=== PATIENT | female | born 1935 | race Caucasian/White ===

== ENCOUNTER 2023-11-29 06:24 | Inpatient (IN) | payer MEDICARE, OTHER, BC, SELFPAY ==
--- NOTE | 2023-11-29 06:37 | PC.NURSE ---
[place] was notified for transfer-- Patient on 4L/NC for saturation of 84% per [facility], acute right pleural effusion, and acute pericardial effusion. Patient not on oxygen at her baseline. Placed patient Acute Step down 219, Hospitalist
--- NOTE | 2023-11-29 06:50 | EXP.HP ---
History of Present Illness *Admission Date: 11/29/23 *Reason for visit:: SOB *History of present illness: This is an 88-year-old female [facility] resident with PMHx of atrial fibrillation s/p cardioversion x3, arthritis, systolic heart failure, unknown EF, respiratory failure not on oxygen, sent to ED by nursing facility staff for evaluation of hypoxia. Patient reportedly had an episode of shortness of breath and cough, saturation dropped in the mid 70s and they had placed on oxygen. Patient reports started has not need to be on oxygen for approximately 1 year that she did have a recent hip replacement surgery within the past year and that has helped. On arrival patient was found to have a right pleural effusion with cardiac pericardial effusion. Transfer was requested for pulmonology and cardiology evaluation. Patient denies any chest pain or palpitations no headache currently on 4 L nasal cannula. On arrival no respiratory distress seen. Admitted for further workup and management. [facility] Disclaimer: The information contained in this section may have been updated after the patient was seen, as this information can be updated by other users. 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 Hypothyroidism, unspecified Heart failure, unspecified Constipation, unspecified Anxiety disorder, unspecified Acute posthemorrhagic anemia Social History (Updated 11/29/23 @ 07:01 by Brenda Hernandez RN) Smoking Status: Never smoker alcohol intake: never current occupational status: retired Travel in the last 8 weeks: None housing: long term Review of Systems Review of Systems Review of systems:: pertinent systems reviewed and negative unless documented below Meds Home Medications and Allergies Home Medications ?Medication ?Instructions ?Recorded ?Confirmed ?Type acetaminophen 500 mg tablet 500 mg PO TIDP PRN Mild Pain 11/29/23 11/29/23 History (Scale Score 1-4) apixaban 2.5 mg tablet 2.5 mg PO BID 11/29/23 11/29/23 History bisacodyl 5 mg tablet 5 mg PO DAILYP PRN Constipation 11/29/23 11/29/23 History furosemide 20 mg tablet 20 mg PO MOWEFR 11/29/23 11/29/23 History gabapentin 100 mg capsule 200 mg PO HS 11/29/23 11/29/23 History levothyroxine 25 mcg tablet 25 mcg PO DAILYDM 11/29/23 11/29/23 History lorazepam 1 mg tablet 1 mg PO DAILYP PRN Anxiety 11/29/23 11/29/23 History memantine 5 mg tablet 5 mg PO HS 11/29/23 11/29/23 History mirtazapine 7.5 mg tablet 7.5 mg PO HS 11/29/23 11/29/23 History polyethylene glycol 3350 17 17 g PO DAILY 11/29/23 11/29/23 History gram/dose oral powder (Miralax) sennosides 8.6 mg-docusate sodium 1 tab PO BID 11/29/23 11/29/23 History 50 mg tablet (Senna-S) simethicone 80 mg chewable tablet 80 mg PO ACHS PRN GAS 11/29/23 11/29/23 History spironolactone 25 mg tablet 25 mg PO SUTUTHSA 11/29/23 11/29/23 History tramadol 50 mg tablet 50 mg PO Q6HP PRN Moderate TO 11/29/23 11/29/23 History SEVERE Pain (PAIN 4-10) trazodone 50 mg tablet 50 mg PO HSP PRN Sleep 11/29/23 11/29/23 History vit C 250 mg-vit E 90 mg-zinc 40 1 tab PO BID 11/29/23 11/29/23 History mg-copper 1 [id number] capsule (PreserVision AREDS-2) New Prescriptions to Start Prescriptions: Allergies Allergy/AdvReac Type Severity Reaction Status Date / Time codeine Allergy Severe Anaphylaxis Verified 11/29/23 06:37 Penicillins Allergy Unknown Unknown Verified 11/29/23 06:37 allergy reaction Sulfa (Sulfonamide Allergy Unknown Unknown Verified 11/29/23 06:37 Antibiotics) allergy reaction Exam Constitutional Constitutional: mild distress, thin and cooperative *Routine HEENT Exam Head: Present normocephalic Eye: Present EOMI and PERRL ENT: Present mucous membranes moist *Routine Neck Exam Neck: Present supple; Absent lymphadenopathy *Routine Respiratory Exam Respiratory: Present CTA bilaterally, diminished air movement and symmetric chest movement *Routine Cardiovascular Exam Cardiovascular: Present Normal S1, Normal S2 and irregularly irregular *Routine Abdominal Exam Abdominal: Present soft and normoactive bowel sounds; Absent tenderness *Routine Rectal Exam Rectal:: deferred *Routine Genitalia Exam Genitalia:: deferred *Routine Extremities Exam Extremities: Absent cyanosis, clubbing or edema *Routine Skin Exam Skin: Present warm; Absent rash *Routine Neurological Exam Neurological: Present alert and oriented X3 H&P: Result Imaging and Cardiology EKG: Status: image reviewed by me, Preliminary report and final report Chest x-ray: Status: image reviewed by me, Preliminary report and final report CT scan - chest: Status: image reviewed by me, Preliminary report and final report Assessment and Plan *Assessment and plan (1) Acute respiratory failure with hypoxia: Status: Acute Category: Medical Code(s): J96.01 - Acute respiratory failure with hypoxia (2) Pericardial effusion: Status: Acute Category: Medical Code(s): I31.39 - Other pericardial effusion (noninflammatory) (3) Pleural effusion, right: Status: Acute Category: Medical Code(s): J90 - Pleural effusion, not elsewhere classified (4) UTI (urinary tract infection): Status: Acute Qualifiers: Hematuria presence: without hematuria Urinary tract infection type: site unspecified Qualified Code(s): N39.0 - Urinary tract infection, site not specified Category: Medical Code(s): N39.0 - Urinary tract infection, site not specified (5) Heart failure, unspecified: Status: Acute Qualifiers: Heart failure chronicity: unspecified Category: Medical Code(s): I50.9 - Heart failure, unspecified (6) Unspecified atrial fibrillation: Status: Acute Qualifiers: Atrial fibrillation type: unspecified Qualified Code(s): I48.91 - Unspecified atrial fibrillation Category: Medical Code(s): I48.91 - Unspecified atrial fibrillation (7) 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 resident with PMHx of atrial fibrillation s/p cardioversion x3, arthritis, systolic heart failure, unknown EF, respiratory failure not on oxygen, sent to ED by nursing facility staff for evaluation of hypoxia. On arrival to another facility initial workup was included CT and chest x-ray concerning for right pleural effusion, along with pericardial effusion. EKG was on atrial fibrillation with T inversions in V2 through V6 no ST changes. Troponin was negative BNP slightly elevated. UA concerning for UTI. Transfer was requested for to our facility for pulmonology and cardiology evaluation. Discussed with the referring physician. I agree for admission and transfer. Plan as follow: -Acute respiratory failure with hypoxia: For cardiac and pleural effusion. Right side Rule out CHF observation, versus malignancy: Urinary tract infection: Admit patient for continued cardiac telemetry. Dispo [facility] Pulmonology and cardiology consult Obtain baseline labs. Including troponin Echocardiogram ordered Monitor for hypoxia. Currently on 3 L nasal cannula and weaning off. Checks x-ray Started on Levaquin 750 mg IV Daily lab Chronic conditions: Hypertension heart failure, atrial fibrillation: Resume Eliquis. Patient on dual diuresis spironolactone and furosemide. 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 Resume Synthroid for hypothyroidism On Eliquis. Protonix for GI bleed prophylaxis Full code
--- NOTE | 2023-11-29 06:58 | XR_ITS ---
PROCEDURE INFORMATION: Exam: XR Chest Exam date and time: 11/29/2023 7:05 AM Age: 88 years old Clinical indication: Condition or disease; Other: Pleural effusion; Additional info: Right pleural effusion TECHNIQUE: Imaging protocol: Radiologic exam of the chest. Views: 1 view. COMPARISON: CT CHEST WO CONTRAST 11/29/2023 2:41 AM FINDINGS: Lungs: Opacity in the right base may represent atelectasis or pneumonia.. Pleural spaces: Mild to moderate right pleural effusion Heart/Mediastinum: Cardiomegaly Bones/joints: Healed proximal left humeral neck fracture IMPRESSION: Opacity in the right base may represent atelectasis or pneumonia.. Mild to moderate right pleural effusion
[2023-11-29 07:19] VITALS: BMI 18.3
[2023-11-29 07:44] LABS: Basophils % 0.4 % (0.1-2.0); Eosinophils % 0.4 % (0.1-12.0); Hematocrit 36.9 % (37.0-47.0); Hemoglobin 11.1 g/dL (12.2-16.2); Lymphocytes # 0.9 K/mm3 (0.7-4.5); Lymphocytes % 13.8 % (10-50); Mean Corpuscular Hemoglobin 28.1 pg (27.0-31.2); Mean Corpuscular Volume 93.5 fl (81-99); Mean Platelet Volume 9.4 fl (7.4-10.4); Monocytes # 0.4 K/mm3 (0.1-1.0); Monocytes % 6.6 % (1.7-9.3); Neutrophils % 78.9 % (37.0-80.0); Platelet Count 149 K/mm3 (142-424); Red Blood Count 3.95 M/mm3 (4.20-5.40); Red Cell Distribution Width 16.1 % (11.5-17.5); White Blood Count 6.3 K/mm3 (4.8-10.8)
[2023-11-29 07:52] LABS: Albumin Level 3.5 g/dl (3.5-5.0); Chloride 106 mmol/L (98-107); Sodium 139 mmol/L (136-145)
[2023-11-29 07:53] LABS: Potassium 4.1 mmoL/L (3.5-5.1)
[2023-11-29 07:55] LABS: Alanine Aminotransferase 12 U/L (12-78); Albumin/Globulin Ratio 1.1 (1.1-1.8); Anion Gap 9.1 mEq/L (5-15); Aspartate Amino Transferase 20 U/L (14-36); Blood Urea Nitrogen 28 mg/dl (7-17); Carbon Dioxide 28 mmol/L (22.0-30.0); Creatinine Clearance Estimated 33 mL/min (50-200); Estimated Glomerular Filt Rate 68 ml/min (>60); GFR (African American) 82 ML/MIN (>60); Globulin 3.1 g/dL (1.3-3.2); Total Protein,Serum 6.6 g/dl (6.3-8.2)
[2023-11-29 07:56] LABS: Alkaline Phosphatase 65 U/L (38-126); Bilirubin,Total 1.5 mg/dl (0.2-1.3); Glucose 94 mg/dl (74-100); INR 1.16 (0.9-1.1); Prothrombin Time 12.8 seconds (10.1-12.5)
[2023-11-29 08:00] VITALS: BP 103/71; PULSE 90; RESP 20; O2SAT 97
[2023-11-29 08:08] LABS: Troponin I 0.04 ng/ml (0.00-0.034)
[2023-11-29] MEDS: PANTOPRAZOLE 40MG TABLET 40 MG PO (08:16)
[2023-11-29 10:00] VITALS: BP 118/65; PULSE 92; RESP 20; O2SAT 93
[2023-11-29 11:20] LABS: Troponin I 0.03 ng/ml (0.00-0.034)
[2023-11-29 12:00] VITALS: BP 136/60; PULSE 110; RESP 22; TEMP 36.5; O2SAT 96
[2023-11-29] MEDS: LEVOFLOXACIN/D5W 750 MG/150 ML 750 MG/150 ML PIGGYBACK 100 MG IV (12:26)
[2023-11-29 13:53] LABS: Troponin I 0.03 ng/ml (0.00-0.034)
--- NOTE | 2023-11-29 15:30 | PC.NURSE ---
Addendum entered by Ami Courtney RN 11/29/23 16:56: Patient alert and oriented times 4 at beginning of shift but confused to situation after lunch. Patient unable to remember why she was at the hospital. Patient able to be reoriented easily. Patient's son stated this am that patient is forgetful and confusion waxes and wanes. Original Note: Patient anxious during shift after lunch, pt easily reoriented and calmed down. VS stable and patient on 1lNC. Patient weaned to room air but 87% on room air at rest and 1LNC reapplied. Lung sounds clear. IV antibiotics given. Afib on monitor. No pain reported by patient.
[2023-11-29 16:00] VITALS: BP 140/75; PULSE 100; PULSE 86; RESP 19; TEMP 36.6; O2SAT 96
[2023-11-29 16:37] LABS: Troponin I 0.02 ng/ml (0.00-0.034)
[2023-11-29 16:57] LABS: Microscopic, Urine URINE MICROSCOPIC (MICROSCOPIC)
[2023-11-29 16:58] LABS: Appearance,Urine CLEAR (Clear); Bilirubin,Urine Negative (Negative); Blood, Urine Negative (Negative); Color,Urine YELLOW (Yellow); Glucose,Urine (UA) Negative (Negative); Ketones,Urine Negative (Negative); Leukocyte Esterase,Urine 1+ (Negative); Nitrate,Urine Negative (Negative); Protein,Urine 1+ (Negative); Specific Gravity, Urine >= 1.030 (1.005-1.030); Urobilinogen,Urine 0.2 EU/dl (0.2)
[2023-11-29 17:06] LABS: Bacteria,Urine 1+ /lpf; WBC,Urine 20-50 #/hpf (0-3)
[2023-11-29 19:18] LABS: Troponin I 0.02 ng/ml (0.00-0.034)
[2023-11-29 20:00] VITALS: BP 107/65; PULSE 89; RESP 16; TEMP 36.8; O2SAT 95
[2023-11-29] MEDS: SENNOSIDES 8.6MG/DOCUSATE 50MG TABLET 1 TAB PO (21:31)
[2023-11-29] MEDS: SPIRONOLACTONE 25MG TABLET 25 MG PO (21:31)
[2023-11-29] MEDS: GABAPENTIN 100MG CAPSULE 200 MG PO (21:32)
[2023-11-29] MEDS: PATIENT'S OWN HOME MEDICATION (Mirtazapine 7.5 mg tablet) 7.5 EACH PO (21:42)
[2023-11-29] MEDS: PATIENT'S OWN HOME MEDICATION (Memantine 5 mg tablet) 5 EACH PO (21:42)
[2023-11-29 22:27] LABS: Troponin I 0.02 ng/ml (0.00-0.034)
[2023-11-30] VITALS (7 sets, daily range): BP systolic 100–138; BP diastolic 55–87; PULSE 68–120; RESP 16–22; TEMP 36.6–37.5; O2SAT 2–95; BMI 18.8
--- NOTE | 2023-11-30 02:30 | ECG_ITS ---
APPROVED REPORT Exam: Resting ECG HR:107 bpm ECG Measurements Heart Rate 107 AXES QRSd 148 QRS 41 QT 392 T 90 QTc 455 Conclusion ATRIAL FIBRILLATION WITH RAPID VENTRICULAR RESPONSE WITH ABERRANT CONDUCTION OR VENTRICULAR PREMATURE COMPLEXES INTRAVENTRICULAR CONDUCTION DELAY [130+ ms QRS DURATION] ABNORMAL ECG UNCONFIRMED REPORT Electronically signed by : Juarez Garcia MD 11/30/2023 08:07:09
[2023-11-30] MEDS: LORazepam 1MG TABLET 1 MG PO (03:02)
--- NOTE | 2023-11-30 05:29 | PC.NURSE ---
Alert and oriented, intermittent confusion, easily reoriented. Pt states she just wants to go home. Pt increased to 2L NC while sleeping, O2 sat dropped to 84% on 1L, now O2 sat >90%. Uses bedside commode with one assist, has had multiple trips to the [facility] this shift. Pt is very anxious, continuously asks questions about why we do what we do, PRN medication given, pt did rest after. Pt HR began to climb to 150s, decreased and sustained 120s, EKG complete, given to Frank TREJO, stated to try PRN medications. Pt HR remains in 110s at this time. Afib on the monitor. Occassionaly HR will go to 130s, but does not sustain and drops back to 110s quickly. When patient gets up HR goes up, laying down HR decreases. Orthostatics taken. Bed alarm on, Call light in reach.
--- NOTE | 2023-11-30 06:48 | CA_ITS ---
APPROVED REPORT EXAM: Comprehensive 2D, Doppler, and color-flow Echocardiogram Materials Intern: Cuca Emerson CRT Ht: 5 ft 7 in Wt: 119lbs BSA: 1.62 BP: 124/66 mmHg Indications: Afib, cardioversion x 3, chf, pleural effusion, pericardial effusion Pectus excavatum, heart sits low in chest TDE 2D Dimensions LA Volume 59.90 mL LA Volume Index 36.10 mL/m2 (M/F) 16-34 M-Mode Dimensions RVDd 4.34 cm (0.9-2.6) LA Diam 4.57 cm (1.9-4.0) LVDd 5.38 cm (3.5-5.7) LVDs 3.85 cm (3.5-5.7) IVSd 1.18 cm (0.6-1.1) PWd 0.54 cm (0.6-1.1) EF (Teich) 54.40% FS 28.40% EDV (Teich) 140.10 mL ESV (Teich) 63.90 mL LV Diastology E Decel Time 150 (160-240 msec) E/A Ratio 2.63 MED A' 7.10 cm/s LAT A' 3.20 cm/s Aortic Valve AI PHT 343.00 ms AO Peak GR. 3.60 mmHg Mitral Valve MV E Max Isaac. 58.0 (40-130 cm/s) MV A Velocity 22.0 (40-130 cm/s) E/A Ratio 2.63 MV PHT 44.0 ms Pulmonary Valve PV Peak Velocity 207.0 (50-150 cm/s) Tricuspid Valve TR P. Velocity 239.00 cm/s RAP Estimate 10.00 mmHg RVSP 32.90 mmHg Left Ventricle The left ventricle is normal size. Left ventricular systolic function is moderate to severely decreased. There is increased LV wall thickness. The septum is asynchronous. Moderte to severe global hypokinesis is present. Diastolic function is indeterminate. LVEF is 30%. Right Ventricle Right ventricle is moderately dilated. Right ventricle is moderately hypokinetic. Atria Left atrium is severely dilated. Right atrium is moderately dilated. The interatrial septum is not well visualized. Aortic Valve The aortic valve is mildly thickened. There is no aortic valvular stenosis. Trace aortic regurgitation. Mitral Valve The mitral valve is normal in structure. No evidence of mitral valve stenosis. Mild mitral regurgitation. Tricuspid Valve The tricuspid valve leaflets are thin and pliable. Moderate tricuspid regurgitation. RVSP is 25-30 mmHg. Pulmonic Valve The pulmonary valve is normal in structure. Mild to moderate pulmonic regurgitation. Great Vessels The aortic root is normal in size. The ascending aorta is not well visualized. IVC is dilated, but collapsible > 50% with respirophasic variation. RA pressure is estimated at 8 mmHg. Pericardium A moderate-sized circumferential pericardial effusion is preent. Largest pocket measures 1.2 cm in diastole and is located posteriorly. No clear echo indications of tamponade or chamaber collapse. Other Information Study Quality: Technically Difficult Conclusion Technically difficult study due to poor accoustic windows and history of pectus excavatum. Moderate reduction in LV systolic function (LVEF 30%). Moderate RV dilation with moderate reduction in RV function. Biatrial dilation. Moderate TR. Mild to moderate PI. Mild PI. A moderate-sized circumferential pericardial effusion is preent. Largest pocket measures 1.2 cm in diastole and is located posteriorly. No clear echo indications of tamponade or chamaber collapse. Electronically signed by : Nusrat Aiken MD 11/30/2023 09:28:08
[2023-11-30 07:07] LABS: Basophils % 0.3 % (0.1-2.0); Eosinophils # 0.1 K/mm3 (0.0-0.4); Eosinophils % 1.4 % (0.1-12.0); Hematocrit 37.1 % (37.0-47.0); Lymphocytes % 17.5 % (10-50); Mean Corpuscular HGB Conc 29.6 g/dL (31.8-35.4); Mean Corpuscular Hemoglobin 27.8 pg (27.0-31.2); Mean Corpuscular Volume 93.8 fl (81-99); Mean Platelet Volume 9.6 fl (7.4-10.4); Monocytes # 0.5 K/mm3 (0.1-1.0); Monocytes % 8.2 % (1.7-9.3); Neutrophils # 4.3 K/mm3 (1.8-7.8); Neutrophils % 72.6 % (37.0-80.0); Platelet Count 153 K/mm3 (142-424); Red Blood Count 3.95 M/mm3 (4.20-5.40); White Blood Count 5.9 K/mm3 (4.8-10.8)
[2023-11-30 07:17] LABS: Albumin Level 3.4 g/dl (3.5-5.0); Chloride 108 mmol/L (98-107); Sodium 139 mmol/L (136-145)
[2023-11-30 07:18] LABS: Potassium 4.1 mmoL/L (3.5-5.1)
[2023-11-30 07:20] LABS: Alanine Aminotransferase 8 U/L (12-78); Albumin/Globulin Ratio 1.1 (1.1-1.8); Alkaline Phosphatase 67 U/L (38-126); Anion Gap 5.1 mEq/L (5-15); Aspartate Amino Transferase 17 U/L (14-36); Bilirubin,Total 1.2 mg/dl (0.2-1.3); Blood Urea Nitrogen 24 mg/dl (7-17); Carbon Dioxide 30 mmol/L (22.0-30.0); Creatinine Clearance Estimated 33 mL/min (50-200); Estimated Glomerular Filt Rate 79 ml/min (>60); GFR (African American) 95 ML/MIN (>60); Globulin 3.2 g/dL (1.3-3.2); INR 1.12 (0.9-1.1); Prothrombin Time 12.4 seconds (10.1-12.5); Total Protein,Serum 6.6 g/dl (6.3-8.2)
[2023-11-30 07:21] LABS: Glucose 90 mg/dl (74-100)
--- NOTE | 2023-11-30 08:02 | SW/DCPLANNER ---
Addendum entered by Francine Belle 11/30/23 08:39: Updated patient information has been faxed to [facility]. Original Note: Patient currently resides at [facility] level of care. I will continue to follow up w/ Bonita from [facility] until patient is medically stable for discharge. Discharge date is unknown at this time.
[2023-11-30] MEDS: LEVOTHYROXINE 25MCG (0.025MG) TAB 25 MCG PO (09:53)
[2023-11-30] MEDS: SENNOSIDES 8.6MG/DOCUSATE 50MG TABLET 1 TAB PO ×2 (09:53→20:25)
[2023-11-30] MEDS: FUROSEMIDE 20MG TABLET 20 MG PO (09:53)
[2023-11-30] MEDS: APIXABAN 5MG TABLET 2.5 MG PO ×2 (09:53→20:22)
[2023-11-30] MEDS: PANTOPRAZOLE 40MG TABLET 40 MG PO (09:53)
--- NOTE | 2023-11-30 10:22 | CT_ITS ---
FINAL REPORT TECHNIQUE: Axial images were obtained from the lung apex to the mid abdomen by computed tomography. Coronal reformatted images were obtained. This study was performed with techniques to keep radiation doses as low as reasonably achievable, (ALARA). Individualized dose reduction techniques using automated exposure control or adjustment of mA and/or kV according to the patient''s size were employed. CLINICAL HISTORY: Shortness of breath COMPARISON: 11/29/2023 FINDINGS: There are several small left thyroid nodes which are stable. There is stable pectus excavatum deformity. There are several small mediastinal nodes. No axillary mass or adenopathy is seen. Cardiomegaly is noted. There is a stable moderate pericardial effusion. Mild emphysema is noted. There are moderate right and small left pleural effusions which are visually stable. The right pleural effusion measures up to 39 mm and left pleural effusion measures up to 13 mm. There are right middle lobe and bilateral lower lobe opacities, much of which are felt to represent atelectasis. Superimposed pneumonia is not excluded but findings are stable. The chest wall is intact. Limited images of the upper abdomen demonstrate several small nonobstructing bilateral renal stones measuring up to 4 mm. There is a low-attenuation left renal mass which cannot be accurately characterized on this noncontrast study measuring 21 mm and may represent a cyst. There is a chronic L1 superior endplate compression fracture. IMPRESSION: Stable right middle lobe and bilateral lower lobe opacities felt to represent atelectasis but superimposed pneumonia not excluded. Bilateral pleural effusions as described, visually stable. Cardiomegaly and stable moderate pericardial effusion. Bilateral nonobstructing renal stones up to 4 mm. Probable left renal cyst. Reviewed, Interpreted and Dictated by Domo Conteh III, MD Transcribed by Chelsey Cunha Authenticated and [facility]
--- NOTE | 2023-11-30 14:22 | EXP.CARD.CON ---
History of Present Illness History of Present Illness Consult date: 11/30/23 Requesting physician: Rosetta Cole Consult reason: shortness of breath Chief complaint: SOA Additional Medical History:: 1. Chronic atrial fibrillation A. Eliquis B. History of cardioversion x 3 2. Dementia A. Son is power of fish bailer 3. History of respiratory failure A. Pleural effusions, right greater than left, 11/2023 4. Newly diagnosed HFrEF, 11/2023 A. Echocardiogram, EF 30% 5. Chronic pericardial effusion, 11/2023 with echo in 2022 showing pericardial effusion as well History of present illness: This is an 88-year-old female [facility] resident with PMHx of atrial fibrillation s/p cardioversion x3, arthritis, systolic heart failure, unknown EF, respiratory failure not on oxygen, sent to ED by nursing facility staff for evaluation of hypoxia. Patient reportedly had an episode of shortness of breath and cough, saturation dropped in the mid 70s and they had placed on oxygen. Patient reports started has not need to be on oxygen for approximately 1 year that she did have a recent hip replacement surgery within the past year and that has helped. On arrival patient was found to have a right pleural effusion with cardiac pericardial effusion. Transfer was requested for pulmonology and cardiology evaluation. Patient denies any chest pain or palpitations no headache currently on 4 L nasal cannula. On arrival no respiratory distress seen. Admitted for further workup and management. The above per Taiwo Marie APRN for the hospitalist service Cardiology consulted for evaluation of pericardial effusion. Patient has some dementia and her son is present and is the power of fish bailer and provides all of the information. Patient had previously been seen by cardiology at [facility] in [place] but since she has been a long term resident she has not been seen in the last year and a half except by televisits. He was able to pull up an echocardi[place] [facility] [place] showing an ejection fraction of 51-55%. There was evidence of concentric LVH. Echocardiogram today shows evidence of EF 30% with increased LV wall thickness and asynchronous septum. Moderate to severe global hypokinesis. Severe left atrial enlargement and moderate right atrial enlargement with mild MR and moderate TR. RVSP is 25-30 mmHg. Mild to moderate pulmonic regurgitation noted. Evidence of a moderate size circumferential pericardial effusion without evidence of tamponade or chamber collapse. PFSH PFSH Disclaimer: The information contained in this section may have been updated after the patient was seen, as this information can be updated by other users. 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 Hypothyroidism, unspecified Heart failure, unspecified Constipation, unspecified Anxiety disorder, unspecified Acute posthemorrhagic anemia Social History (Updated 11/29/23 @ 07:01 by Brenda Hernandez RN) Smoking Status: Never smoker alcohol intake: never current occupational status: retired Travel in the last 8 weeks: None housing: long term Review of Systems Review of Systems Review of systems:: pertinent systems reviewed and negative unless documented below Exam Data for Last 24 hours Vital signs and Labs for Last 24 Hours: Temp Pulse Resp BP Pulse Ox O2 Del Method O2 Flow Rate 98.4 F 72 18 119/83 95 Nasal Cannula 2 11/30/23 12:00 11/30/23 12:00 11/30/23 12:00 11/30/23 12:00 11/30/23 12:00 11/30/23 12:00 11/30/23 12:00 Laboratory Results - last 24 hr 11/29/23 09:39: Urine Color Yellow, Urine Appearance Clear, Urine pH 6.0, Ur Specific [place] >= 1.030, Urine Protein 1+, Urine Glucose (UA) Negative, Urine Ketones Negative, Urine Blood Negative, Urine Nitrate Negative, Urine Bilirubin Negative, Urine Urobilinogen 0.2, Ur Leukocyte Esterase 1+ A, Urine WBC 20-50, Ur Squamous Epith Cells 3-5, Urine Bacteria 1+ 11/29/23 16:05: Troponin I 0.02 11/29/23 18:50: Troponin I 0.02 11/29/23 21:55: Troponin I 0.02 11/30/23 06:55: WBC 5.9, RBC 3.95 L, Hgb 11.0 L, Hct 37.1, MCV 93.8, MCH 27.8, MCHC 29.6 L, RDW 16.0, Plt Count 153, MPV 9.6, Neut % (Auto) 72.6, Lymph % (Auto) 17.5, [place] % (Auto) 8.2, Eos % (Auto) 1.4, Baso % (Auto) 0.3, Neut # (Auto) 4.3, Lymph # (Auto) 1.0, [place] # (Auto) 0.5, Eos # (Auto) 0.1, Baso # (Auto) 0.0, PT 12.4, INR 1.12 H, Sodium 139, Potassium 4.1, Chloride 108 H, Carbon Dioxide 30, Anion Gap 5.1, BUN 24 H, Creatinine 0.70, Estimated Creat Clear 33, Estimated GFR 79, Est GFR ( Amer) 95, Glucose 90, Calcium 8.0 L, Magnesium 2.0, Total Bilirubin 1.2, AST 17, ALT 8 L D, Alkaline Phosphatase 67, Total Protein 6.6, Albumin 3.4 L, Globulin 3.2, Albumin/Globulin Ratio 1.1 I & O for Last 24 hours: Intake & Output 11/28/23 11/29/23 11/30/23 12/01/23 11:59 11:59 11:59 11:59 Intake Total 0 / 0 710 / 710 Output Total 0 / 0 0 / 0 Balance 0 / 0 710 / 710 Weight 119 lb 4.8 oz 121 lb 5 oz Constitutional Constitutional: mild distress *Routine Respiratory Exam Respiratory: Present diminished air movement; Absent rhonchi or wheezes *Routine Cardiovascular Exam Cardiovascular: Present RRR; Absent murmur, gallop or rubs *Routine Extremities Exam Extremities: Absent edema *Routine Neurological Exam Neurological: Present alert; Absent oriented X3 Meds Home Medications and Allergies Home Medications ?Medication ?Instructions ?Recorded ?Confirmed ?Type acetaminophen 500 mg tablet 500 mg PO TIDP PRN Mild Pain 11/29/23 11/29/23 History (Scale Score 1-4) apixaban 2.5 mg tablet 2.5 mg PO BID 11/29/23 11/29/23 History bisacodyl 5 mg tablet 5 mg PO DAILYP PRN Constipation 11/29/23 11/29/23 History furosemide 20 mg tablet 20 mg PO MOWEFR 11/29/23 11/29/23 History gabapentin 100 mg capsule 200 mg PO HS 11/29/23 11/29/23 History levothyroxine 25 mcg tablet 25 mcg PO DAILYDM 11/29/23 11/29/23 History lorazepam 1 mg tablet 1 mg PO DAILYP PRN Anxiety 11/29/23 11/29/23 History memantine 5 mg tablet 5 mg PO HS 11/29/23 11/29/23 History mirtazapine 7.5 mg tablet 7.5 mg PO HS 11/29/23 11/29/23 History polyethylene glycol 3350 17 17 g PO DAILY 11/29/23 11/29/23 History gram/dose oral powder (Miralax) sennosides 8.6 mg-docusate sodium 1 tab PO BID 11/29/23 11/29/23 History 50 mg tablet (Senna-S) simethicone 80 mg chewable tablet 80 mg PO ACHS PRN GAS 11/29/23 11/29/23 History spironolactone 25 mg tablet 25 mg PO SUTUTHSA 11/29/23 11/29/23 History tramadol 50 mg tablet 50 mg PO Q6HP PRN Moderate TO 11/29/23 11/29/23 History SEVERE Pain (PAIN 4-10) trazodone 50 mg tablet 50 mg PO HSP PRN Sleep 11/29/23 11/29/23 History vit C 250 mg-vit E 90 mg-zinc 40 1 tab PO BID 11/29/23 11/29/23 History mg-copper 1 my-hzsjak-yhcjli capsule (PreserVision AREDS-2) New Prescriptions to Start Prescriptions: Allergies Allergy/AdvReac Type Severity Reaction Status Date / Time codeine Allergy Severe Anaphylaxis Verified 11/29/23 06:37 Penicillins Allergy Unknown Unknown Verified 11/29/23 06:37 allergy reaction Sulfa (Sulfonamide Allergy Unknown Unknown Verified 11/29/23 06:37 Antibiotics) allergy reaction Assessment and Plan *Assessment and plan (1) HFrEF (heart failure with reduced ejection fraction): Status: Acute Category: Medical Code(s): I50.20 - Unspecified systolic (congestive) heart failure (2) UTI (urinary tract infection): Status: Acute Qualifiers: Urinary tract infection type: site unspecified Hematuria presence: without hematuria Qualified Code(s): N39.0 - Urinary tract infection, site not specified Category: Medical Code(s): N39.0 - Urinary tract infection, site not specified (3) 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: Status: Acute Category: Medical Code(s): F06.70 - 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 (4) Pericardial effusion: Status: Acute Category: Medical Code(s): I31.39 - Other pericardial effusion (noninflammatory) (5) Pleural effusion, right: Status: Acute Category: Medical Code(s): J90 - Pleural effusion, not elsewhere classified (6) Acute respiratory failure with hypoxia: Status: Acute Category: Medical Code(s): J96.01 - Acute respiratory failure with hypoxia (7) Unspecified atrial fibrillation: Status: Acute Qualifiers: Atrial fibrillation type: unspecified Qualified Code(s): I48.91 - Unspecified atrial fibrillation Category: Medical Code(s): I48.91 - Unspecified atrial fibrillation Plan 1. HFrEF, newly diagnosed -Ejection fraction 30% -Will adjust medicines to begin goal-directed medical therapy as able -No plans for invasive procedures 2. Possible pneumonia -On antibiotic therapy 3. UTI -On antibiotic therapy 4. Pericardial effusion without evidence of tamponade -No plans for pericardiocentesis 5. Right > left pleural effusions, mild to moderate -Continue diuretic therapy 6. Chronic atrial fibrillation -On Eliquis therapy 7. DNR Begin goal-directed medical therapy for HFrEF No plans for invasive procedures Pulmonary consulted for tomorrow for consideration of thoracentesis
[2023-11-30] MEDS: NYSTATIN TOPICAL POWDER 30GM TP ×2 (15:42→20:24)
--- NOTE | 2023-11-30 16:12 | EXP.PN ---
Subjective *Date: 11/30/23 *Time: 16:12 Interval history: seen at bedside, patient has dementia, she does not participate much in conversations, son is at bedside and he provides answers to the questions, no acute events reported overnight, no SOB, CP Exam Data for Last 24 hours Vital signs and Labs for Last 24 Hours: Temp Pulse Resp BP Pulse Ox O2 Del Method O2 Flow Rate 98.4 F 72 18 119/83 95 Nasal Cannula 2 11/30/23 12:00 11/30/23 12:00 11/30/23 12:00 11/30/23 12:00 11/30/23 12:00 11/30/23 12:00 11/30/23 12:00 Laboratory Results - last 24 hr 11/29/23 09:39: Urine Color Yellow, Urine Appearance Clear, Urine pH 6.0, Ur Specific [place] >= 1.030, Urine Protein 1+, Urine Glucose (UA) Negative, Urine Ketones Negative, Urine Blood Negative, Urine Nitrate Negative, Urine Bilirubin Negative, Urine Urobilinogen 0.2, Ur Leukocyte Esterase 1+ A, Urine WBC 20-50, Ur Squamous Epith Cells 3-5, Urine Bacteria 1+ 11/29/23 16:05: Troponin I 0.02 11/29/23 18:50: Troponin I 0.02 11/29/23 21:55: Troponin I 0.02 11/30/23 06:55: WBC 5.9, RBC 3.95 L, Hgb 11.0 L, Hct 37.1, MCV 93.8, MCH 27.8, MCHC 29.6 L, RDW 16.0, Plt Count 153, MPV 9.6, Neut % (Auto) 72.6, Lymph % (Auto) 17.5, [place] % (Auto) 8.2, Eos % (Auto) 1.4, Baso % (Auto) 0.3, Neut # (Auto) 4.3, Lymph # (Auto) 1.0, [place] # (Auto) 0.5, Eos # (Auto) 0.1, Baso # (Auto) 0.0, PT 12.4, INR 1.12 H, Sodium 139, Potassium 4.1, Chloride 108 H, Carbon Dioxide 30, Anion Gap 5.1, BUN 24 H, Creatinine 0.70, Estimated Creat Clear 33, Estimated GFR 79, Est GFR ( Amer) 95, Glucose 90, Calcium 8.0 L, Magnesium 2.0, Total Bilirubin 1.2, AST 17, ALT 8 L D, Alkaline Phosphatase 67, Total Protein 6.6, Albumin 3.4 L, Globulin 3.2, Albumin/Globulin Ratio 1.1 I & O for Last 24 hours: Intake & Output 11/27/23 11/28/23 11/29/23 11/30/23 23:59 23:59 23:59 23:59 Intake Total 390 / 590 320 / 320 Output Total 0 / 0 0 / 0 Balance 390 / 590 320 / 320 Weight 54.114 kg 55.026 kg Constitutional Constitutional: no acute distress *Routine HEENT Exam Head: Present normocephalic Eye: Present EOMI and PERRL ENT: Present mucous membranes moist *Routine Neck Exam Neck: Present supple; Absent lymphadenopathy *Routine Respiratory Exam Respiratory: Present CTA bilaterally *Routine Cardiovascular Exam Cardiovascular: Present RRR *Routine Abdominal Exam Abdominal: Present soft and normoactive bowel sounds; Absent tenderness *Routine Extremities Exam Extremities: Absent cyanosis, clubbing or edema *Routine Skin Exam Skin: Present warm; Absent rash *Routine Neurological Exam Neurological: Present alert and oriented X3 Assessment and Plan *Assessment and plan (1) Acute respiratory failure with hypoxia: Status: Acute Category: Medical Code(s): J96.01 - Acute respiratory failure with hypoxia (2) Pericardial effusion: Status: Acute Category: Medical Code(s): I31.39 - Other pericardial effusion (noninflammatory) (3) Pleural effusion, right: Status: Acute Category: Medical Code(s): J90 - Pleural effusion, not elsewhere classified (4) UTI (urinary tract infection): Status: Acute Qualifiers: Urinary tract infection type: site unspecified Hematuria presence: without hematuria Qualified Code(s): N39.0 - Urinary tract infection, site not specified Category: Medical Code(s): N39.0 - Urinary tract infection, site not specified (5) Heart failure, unspecified: Status: Acute Qualifiers: Heart failure chronicity: unspecified Category: Medical Code(s): I50.9 - Heart failure, unspecified (6) Unspecified atrial fibrillation: Status: Acute Qualifiers: Atrial fibrillation type: unspecified Qualified Code(s): I48.91 - Unspecified atrial fibrillation Category: Medical Code(s): I48.91 - Unspecified atrial fibrillation (7) 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 On arrival to another facility initial workup was included CT and chest x-ray concerning for right pleural effusion, along with pericardial effusion. EKG was on atrial fibrillation with T inversions in V2 through V6 no ST changes. Troponin was negative BNP slightly elevated. UA concerning for UTI. Transfer was requested for to our facility for pulmonology and cardiology evaluation. Discussed with the referring physician. I agree for admission and transfer. Plan as follow: Acute respiratory failure with hypoxia: Moderate pericardial effusion B/l pleural effusion Urinary tract infection: Echo performed - LVEF 30%, no sign of temponade, pericardial effusion -Largest pocket measures 1.2 cm in diastole and is located posteriorly. No clear echo indications of tamponade or chamaber collapse. CT chest does show pleural effusions b/l - R > L, may need thoracentesis, will wait for pulmonology input Pulmonology to see patient tomorrow discussed with cardiology Chronic afib - continue on eliquis Monitor for hypoxia. Currently on 3 L nasal cannula and weaning off continue Levaquin 750 mg IV Chronic conditions: Hypertension heart failure, atrial fibrillation: Resume Eliquis. Patient on dual diuresis spironolactone and furosemide. 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 Resume Synthroid for hypothyroidism On Eliquis. Protonix for GI bleed prophylaxis Full code Await pulm terrance, likely DC 1-2 days pending clinical improvement, likely SNF placement
--- NOTE | 2023-11-30 16:13 | PC.NURSE ---
Patient has been alert and oriented this shift with intermittient confusion. Patient has redness to groin area and nystatin powder ordered. Patient's vss. Son at bedside.
[2023-11-30] MEDS: MEMANTINE 10MG TABLET 5 MG PO (20:23)
[2023-11-30] MEDS: GABAPENTIN 100MG CAPSULE 200 MG PO (20:23)
[2023-11-30] MEDS: MIRTAZAPINE 15 MG TABLET 7.5 MG PO (20:24)
[2023-11-30] MEDS: SACUBITRIL/VALSARTAN 24-26MG TABLET 1 EACH PO (20:24)
[2023-11-30] MEDS: TRAMADOL 50MG TABLET 50 MG PO (20:25)
[2023-12-01] VITALS (8 sets, daily range): BP systolic 92–128; BP diastolic 44–54; PULSE 87–120; RESP 16–24; TEMP 36.4–37.1; O2SAT 89–94; BMI 25.1
--- NOTE | 2023-12-01 00:55 | PC.WOUNDNOTE ---
stage 1 to right buttocks, pink, blanchable, no draiange noted, mepilex applied
[2023-12-01] MEDS: TRAMADOL 50MG TABLET 50 MG PO (02:21)
[2023-12-01] MEDS: LORazepam 1MG TABLET 1 MG PO (04:25)
[2023-12-01] MEDS: ACETAMINOPHEN 325MG TAB 650 MG PO (04:25)
--- NOTE | 2023-12-01 04:41 | PC.NURSE ---
pt has been reporting shooting pains in legs, pain in l elbow, pain in neck. pt treated with pain per mar and massage. pt taking oral hydration well. pt has ate snacks through the night, pt remains on 2l/nc.
[2023-12-01] MEDS: LEVOTHYROXINE 25MCG (0.025MG) TAB 25 MCG PO (06:00)
[2023-12-01 07:13] LABS: Anion Gap 7.8 mEq/L (5-15); Blood Urea Nitrogen 20 mg/dl (7-17); Calcium 8.1 mg/dl (8.4-10.2); Carbon Dioxide 32 mmol/L (22.0-30.0); Chloride 101 mmol/L (98-107); Creatinine Clearance Estimated 44 mL/min (50-200); Estimated Glomerular Filt Rate 79 ml/min (>60); GFR (African American) 95 ML/MIN (>60); Glucose 128 mg/dl (74-100); Potassium 3.8 mmoL/L (3.5-5.1); Sodium 137 mmol/L (136-145)
[2023-12-01 07:32] LABS: Basophils % 0.2 % (0.1-2.0); Eosinophils % 0.2 % (0.1-12.0); Hematocrit 33.2 % (37.0-47.0); Hemoglobin 11.4 g/dL (12.2-16.2); Lymphocytes # 0.6 K/mm3 (0.7-4.5); Lymphocytes % 7.5 % (10-50); Mean Corpuscular HGB Conc 34.4 g/dL (31.8-35.4); Mean Corpuscular Hemoglobin 32.1 pg (27.0-31.2); Mean Corpuscular Volume 93.1 fl (81-99); Mean Platelet Volume 9.5 fl (7.4-10.4); Monocytes # 0.6 K/mm3 (0.1-1.0); Monocytes % 6.6 % (1.7-9.3); Neutrophils # 7.1 K/mm3 (1.8-7.8); Neutrophils % 85.5 % (37.0-80.0); Platelet Count 154 K/mm3 (142-424); Red Blood Count 3.56 M/mm3 (4.20-5.40); Red Cell Distribution Width 16.2 % (11.5-17.5); White Blood Count 8.3 K/mm3 (4.8-10.8)
[2023-12-01 08:22] LABS: MANUAL DIFFERENTIAL MANUAL DIFFERENTIAL (MANUAL DIFF)
[2023-12-01] MEDS: PANTOPRAZOLE 40MG TABLET 40 MG PO (09:17)
[2023-12-01] MEDS: SENNOSIDES 8.6MG/DOCUSATE 50MG TABLET 1 TAB PO ×2 (09:17→21:14)
[2023-12-01] MEDS: POLYETHYLENE GLYCOL 3350 17 GM PACKET PO (09:17)
[2023-12-01] MEDS: APIXABAN 5MG TABLET 2.5 MG PO ×2 (09:17→21:13)
[2023-12-01] MEDS: SACUBITRIL/VALSARTAN 24-26MG TABLET 1 EACH PO ×2 (09:17→21:14)
[2023-12-01] MEDS: NYSTATIN TOPICAL POWDER 30GM TP ×3 (09:31→21:14)
[2023-12-01 09:36] LABS: Lymphocytes % 12 % (10-50); Monocytes % 4 % (2-9); Neutrophils % 84 % (42-76); Total Cells Counted 100
[2023-12-01 09:37] LABS: Platelet Estimate Normal; RBC Morphology Normal
--- NOTE | 2023-12-01 09:45 | PC.NURSE ---
Hill aware of pt's afib HR 126-156.
--- NOTE | 2023-12-01 09:59 | EXP.CARD.PN ---
Subjective Subjective Date: 12/01/23 Time: 09:59 Principal diagnosis: A. fib, pericardial effusion, pleural effusions, Interval history: 88-year-old white female in bed in no acute distress. Son relates worsening confusion/disorientation this morning. Patient now requiring supplemental oxygen. Heart rate is consistently in the 120s to 140 range with systolic blood pressure in the 90s. Patient is DNR. Exam Data for Last 24 hours Vital signs and Labs for Last 24 Hours: Temp Pulse Resp BP Pulse Ox O2 Del Method O2 Flow Rate 97.8 F 120 H 22 92/44 L 90 L Nasal Cannula 3 12/01/23 07:42 12/01/23 08:00 12/01/23 07:42 12/01/23 07:42 12/01/23 07:42 12/01/23 09:00 12/01/23 09:00 Laboratory Results - last 24 hr 12/01/23 06:23: WBC 8.3 D, RBC 3.56 L, Hgb 11.4 L, Hct 33.2 L, MCV 93.1, MCH 32.1 H, MCHC 34.4, RDW 16.2, Plt Count 154, MPV 9.5, Neut % (Auto) 85.5 H, Lymph % (Auto) 7.5 L, [place] % (Auto) 6.6, Eos % (Auto) 0.2, Baso % (Auto) 0.2, Neut # (Auto) 7.1, Lymph # (Auto) 0.6 L, [place] # (Auto) 0.6, Eos # (Auto) 0.0, Baso # (Auto) 0.0, Total Counted 100, Neutrophils % (Manual) 84 H, Lymphocytes % (Manual) 12, Monocytes % (Manual) 4, Platelet Estimate Normal, RBC Morphology Normal, Sodium 137, Potassium 3.8, Chloride 101, Carbon Dioxide 32 H, Anion Gap 7.8, BUN 20 H, Creatinine 0.70, Estimated Creat Clear 44, Estimated GFR 79, Est GFR ( Amer) 95, Glucose 128 H D, Calcium 8.1 L I & O for Last 24 hours: Intake & Output 11/28/23 11/29/23 11/30/23 12/01/23 11:59 11:59 11:59 11:59 Intake Total 0 / 0 710 / 710 1100 / 1100 Output Total 0 / 0 0 / 0 700 / 700 Balance 0 / 0 710 / 710 400 / 400 Weight 119 lb 4.8 oz 121 lb 5 oz 162 lb 3.2 oz *Routine Respiratory Exam Respiratory: Present diminished air movement; Absent wheezes or crackles *Routine Cardiovascular Exam Cardiovascular: Present tachycardia and irregularly irregular *Routine Neurological Exam Neurological: Present alert Progress Note: A&P Assessment and plan (1) Acute respiratory failure with hypoxia: Status: Acute (2) Pericardial effusion: Status: Acute (3) Pleural effusion, right: Status: Acute (4) UTI (urinary tract infection): Status: Acute (5) Heart failure, unspecified: Status: Acute (6) Unspecified atrial fibrillation: Status: Acute (7) 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 HFrEF, newly diagnosed. Son now states that reduced EF apparently known in summer of last year. -Ejection fraction 30% -Will adjust medicines to begin goal-directed medical therapy as able -No plans for invasive procedures 2. Possible pneumonia -On antibiotic therapy 3. UTI -On antibiotic therapy 4. Pericardial effusion without evidence of tamponade -No plans for pericardiocentesis 5. Right > left pleural effusions, mild to moderate -Continue diuretic therapy 6. Chronic atrial fibrillation -On Eliquis therapy -begin metoprolol tartrate 25 mg BID for rate control 7. DNR Begin metoprolol tartrate 25 mg twice daily for heart rate control as long as blood pressure allows. Poor prognosis.
[2023-12-01] MEDS: METOPROLOL TARTRATE 25MG TABLET 25 MG PO ×2 (10:19→21:13)
[2023-12-01] MEDS: LEVOFLOXACIN/D5W 750 MG/150 ML 750 MG/150 ML PIGGYBACK 100 MG IV (11:53)
--- NOTE | 2023-12-01 11:54 | PC.NURSE ---
bladder scan with 147 ml present.
--- NOTE | 2023-12-01 12:22 | EXP.ACUTE.PN ---
Subjective *Date: 12/01/23 *Time: 16:46 Interval history: Patient has been minimally responsive today. Not responding to son at bedside. Appears in more distress. On 3 L nasal cannula oxygen. Decreased urine output over the past 24 hours. Remains afebrile. Minimal p.o. intake in the past 24 hours. No nausea or vomiting. Medical Exam Vital signs and Labs for Last 24 Hours: Vital Signs Temp Pulse Pulse Pulse Resp BP Pulse Ox 12/01/23 12:09 12/01/23 10:16 12/01/23 09:00 12/01/23 08:00 12/01/23 08:00 120 H 12/01/23 07:42 97.8 F 96 H 22 92/44 L 90 L 12/01/23 06:55 12/01/23 05:00 12/01/23 04:00 97.8 F 96 H 16 107/49 L 92 L 12/01/23 04:00 97.8 F 96 H 16 107/49 L 92 L 12/01/23 04:00 100 H 12/01/23 03:00 12/01/23 01:00 12/01/23 00:00 100 H 12/01/23 00:00 98.8 F 102 H 18 100/44 L 93 L 11/30/23 23:00 11/30/23 21:00 11/30/23 20:00 114 H 11/30/23 20:00 97.8 F 87 91 H 16 100/55 L 11/30/23 20:00 11/30/23 16:00 99.1 F 70 22 114/65 95 11/30/23 16:00 100 H O2 Del Method O2 Flow Rate 12/01/23 12:09 Nasal Cannula 3 12/01/23 10:16 Nasal Cannula 3 12/01/23 09:00 Nasal Cannula 3 12/01/23 08:00 Nasal Cannula 3 12/01/23 08:00 12/01/23 07:42 Nasal Cannula 2.5 12/01/23 06:55 Nasal Cannula 2 12/01/23 05:00 Nasal Cannula 3 12/01/23 04:00 Nasal Cannula 3 12/01/23 04:00 Nasal Cannula 3 12/01/23 04:00 12/01/23 03:00 Nasal Cannula 3 12/01/23 01:00 Nasal Cannula 3 12/01/23 00:00 12/01/23 00:00 Room Air 11/30/23 23:00 Nasal Cannula 2 11/30/23 21:00 Nasal Cannula 2 11/30/23 20:00 11/30/23 20:00 11/30/23 20:00 Nasal Cannula 2 11/30/23 16:00 Nasal Cannula 2 11/30/23 16:00 Intake and Output 11/30/23 12/01/23 12/01/23 23:59 07:59 15:59 Intake Total 120 / 680 980 / 1130 150 / 1130 Output Total 550 / 550 150 / 150 Balance -430 / 130 830 / 980 150 / 980 Intake: Intake, Oral Amount 120 / 680 980 / 980 Intake, Total IV Amount 150 / 150 Levofloxacin/D5w 750 mg/150 ml 150 / 150 750 mg In 150 ml @ 100 mls/hr IV Q48H [facility] Rx#:[id number] Output: Output, Urine Amount 550 / 550 150 / 150 Other: Number of Unmeasured Voids 1 2 Weight 73.573 kg Patient Weight 12/01/23 23:59 Weight 73.573 kg Laboratory Results - last 24 hr 12/01/23 06:23: WBC 8.3 D, RBC 3.56 L, Hgb 11.4 L, Hct 33.2 L, MCV 93.1, MCH 32.1 H, MCHC 34.4, RDW 16.2, Plt Count 154, MPV 9.5, Neut % (Auto) 85.5 H, Lymph % (Auto) 7.5 L, [place] % (Auto) 6.6, Eos % (Auto) 0.2, Baso % (Auto) 0.2, Neut # (Auto) 7.1, Lymph # (Auto) 0.6 L, [place] # (Auto) 0.6, Eos # (Auto) 0.0, Baso # (Auto) 0.0, Total Counted 100, Neutrophils % (Manual) 84 H, Lymphocytes % (Manual) 12, Monocytes % (Manual) 4, Platelet Estimate Normal, RBC Morphology Normal, Sodium 137, Potassium 3.8, Chloride 101, Carbon Dioxide 32 H, Anion Gap 7.8, BUN 20 H, Creatinine 0.70, Estimated Creat Clear 44, Estimated GFR 79, Est GFR ( Amer) 95, Glucose 128 H D, Calcium 8.1 L I & O for Labs for Last 24 Hours: Intake & Output 11/28/23 11/29/23 11/30/23 12/01/23 23:59 23:59 23:59 23:59 Intake Total 390 / 590 440 / 680 1130 / 1130 Output Total 0 / 0 550 / 550 150 / 150 Balance 390 / 590 -110 / 130 980 / 980 Weight 54.114 kg 55.026 kg 73.573 kg Constitutional: Present mild distress, average body habitus, chronically ill appearing and somnolent Head: Present atraumatic and normocephalic ENT: Present normal exam Respiratory: Present rhonchi and normal respiratory effort; Absent wheezes or crackles Cardiac: Present Reg Rate and Rhythm GI: Present soft and normal bowel sounds; Absent distention or tenderness Extremities: Present normal inspection, full ROM and edema (1+ BLE) Skin: Present intact; Absent erythema Neuro: Present Grossly Intact, alert and moves all extremities Assessment and Plan *Assessment and plan (1) Acute respiratory failure with hypoxia: Status: Acute Category: Medical Code(s): J96.01 - Acute respiratory failure with hypoxia (2) Transition from acute care to hospice: Status: Acute Category: Medical Code(s): Z78.9 - Other specified health status (3) Pericardial effusion: Status: Acute Category: Medical Code(s): I31.39 - Other pericardial effusion (noninflammatory) (4) Pleural effusion, right: Status: Acute Category: Medical Code(s): J90 - Pleural effusion, not elsewhere classified (5) UTI (urinary tract infection): Status: Acute Qualifiers: Urinary tract infection type: site unspecified Hematuria presence: without hematuria Qualified Code(s): N39.0 - Urinary tract infection, site not specified Category: Medical Code(s): N39.0 - Urinary tract infection, site not specified (6) Heart failure, unspecified: Status: Acute Qualifiers: Heart failure chronicity: unspecified Category: Medical Code(s): I50.9 - Heart failure, unspecified (7) Unspecified atrial fibrillation: Status: Acute Qualifiers: Atrial fibrillation type: unspecified Qualified Code(s): I48.91 - Unspecified atrial fibrillation Category: Medical Code(s): I48.91 - Unspecified atrial fibrillation (8) 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 On arrival to another facility initial workup was included CT and chest x-ray concerning for right pleural effusion, along with pericardial effusion. EKG was in atrial fibrillation with T inversions in V2 through V6 no ST changes. Troponin was negative BNP slightly elevated. UA concerning for UTI. Transferred for further management. After extensive goals of care discussion with family, decision made to transition to hospice care today. Patient has been declining for some time, family wants to focus on keeping patient comfortable and not be aggressive about interventions. Hospice consulted. Problems addressed as follows: Acute respiratory failure with hypoxia: - Moderate pericardial effusion - B/l pleural effusion Urinary tract infection: Continuing levofloxacin to complete 5 days total of antibiotic - Echo performed - LVEF 30%, no sign of tamponade, pericardial effusion -Largest pocket measures 1.2 cm in diastole and is located posteriorly. - CT chest does show pleural effusions b/l - R > L, small to moderate in size. In line with goals of care, will not pursue aggressive interventions. Patient stable on 2 to 3 L oxygen at this time. Dementia: Complicates her care. Discontinuing memantine in line with goals of care Continue Synthroid for hypothyroid. Transition to hospice care today. Hospice consulted, will see patient in the morning. Initiate morphine 4 mg as needed every 4 hours for pain. Ativan 0.5 mg as needed every 6 hours for agitation. Continue sleep aids including mirtazapine and trazodone. Allow for comfort feeds. Patient's condition declining. PPS of 10, On Eliquis. DNR/DNI
--- NOTE | 2023-12-01 15:50 | SW/DCPLANNER ---
Addendum entered by Francine Wolverton 12/03/23 13:36: Patient will return to [facility] w/ LEONEL today. I have updated Bonita w/ [facility] and Ashanti w/ [facility]. Addendum entered by Francine Belle 12/02/23 09:48: Per Azra sánchez/ LEONEL patient is now admitted under Hospice inpatient. Addendum entered by Francine Wolverton 12/02/23 08:08: Ashanti sánchez/ [facility]ON[facility] stated the nurse will be onsite this AM to speak w/ patient and son. Addendum entered by Francine Wolverton 12/01/23 15:52: Per Ashanti they will call and speak w/ son and arrange meeting onsite for tomorrow morning 12/02/23. Original Note: Per family/MD request patient information has been faxed to [facility].
--- NOTE | 2023-12-01 16:33 | PC.NURSE ---
Aox 1 with confusion, turn q 2 hours, hospice consulted, purewick in place, bed alarm on, 20g r ac sl, on abx, DNR/DNI, takes pills whole.
--- NOTE | 2023-12-01 16:49 | PC.NURSE ---
. aware pt hasn't had any uop today.
--- NOTE | 2023-12-01 16:56 | EXP.EVENT.NO ---
Advance care planning note: Active diagnosis: Heart failure with reduced ejection fraction, worsening pericardial and pleural effusion, progressing dementia, UTI, decreasing urine output, kidney injury. The patient's active diagnoses are of sufficient risk that focused discussion on advanced care planning is indicated in order to allow the patient to thoughtfully consider personal goals of care; and, if situations arise that prevent the ability to personally give input, to ensure appropriate representation of their personal desires through documentation or informed surrogate decision makers. Discussion: Persons present and participating in discussion: Patient, myself, patient's son at bedside Discussion: Discussed patient's progression with dementia. Discussed her declining functional status, worsening heart failure. Discussed desire to not proceed with aggressive intervention such as thoracenteses to further manage her workup her pleural effusion. Discussed focusing on comfort and quality over life-prolonging measures. Family requested hospice consult. Hospice consulted for further management of patient's condition. Patient DNR and DNI. Time spent: Total time spent [id number] in education and discussion directly related to advance care plannin minutes
[2023-12-01] MEDS: GABAPENTIN 100MG CAPSULE 200 MG PO (21:13)
[2023-12-01] MEDS: MIRTAZAPINE 15 MG TABLET 7.5 MG PO (21:13)
[2023-12-01] MEDS: LORazepam 2MG/ML VIAL 0.5 MG IV (22:31)
[2023-12-02] VITALS: BP 99/54; PULSE 102; PULSE 92; RESP 18; TEMP 36.3; O2SAT 97
[2023-12-02 04:00] VITALS: BP 96/52; PULSE 100; RESP 16; TEMP 36.6; O2SAT 100; BMI 17.9
--- NOTE | 2023-12-02 04:32 | PC.NURSE ---
88 yo female pt admitted with UTI and bilateral Pleural effusions. Pt is oriented X 1. Pt has taken a few sips through the night, no difficulty swallowing and was able to swallow meds. Pt became very tearful, restless and was not able to be distracted earlier in the shift. Medicated with Ativan per JUN. She has rested comfortably since giving med. Plan for Hospice to consult later this morning.
[2023-12-02] MEDS: LEVOTHYROXINE 25MCG (0.025MG) TAB 25 MCG PO (06:40)
[2023-12-02 06:57] LABS: Basophils % 0.2 % (0.1-2.0); Eosinophils % 0.1 % (0.1-12.0); Hematocrit 40.1 % (37.0-47.0); Hemoglobin 11.7 g/dL (12.2-16.2); Lymphocytes # 0.8 K/mm3 (0.7-4.5); Lymphocytes % 9.2 % (10-50); Mean Corpuscular HGB Conc 29.1 g/dL (31.8-35.4); Mean Corpuscular Hemoglobin 27.4 pg (27.0-31.2); Mean Corpuscular Volume 94.2 fl (81-99); Mean Platelet Volume 9.2 fl (7.4-10.4); Monocytes # 0.7 K/mm3 (0.1-1.0); Monocytes % 7.9 % (1.7-9.3); Neutrophils # 6.9 K/mm3 (1.8-7.8); Neutrophils % 82.6 % (37.0-80.0); Platelet Count 178 K/mm3 (142-424); Red Blood Count 4.26 M/mm3 (4.20-5.40); Red Cell Distribution Width 15.9 % (11.5-17.5); White Blood Count 8.3 K/mm3 (4.8-10.8)
[2023-12-02 07:20] LABS: Chloride 100 mmol/L (98-107)
[2023-12-02 07:21] LABS: Potassium 4.3 mmoL/L (3.5-5.1); Sodium 136 mmol/L (136-145)
[2023-12-02 07:24] LABS: Anion Gap 8.3 mEq/L (5-15); Blood Urea Nitrogen 36 mg/dl (7-17); Calcium 7.9 mg/dl (8.4-10.2); Carbon Dioxide 32 mmol/L (22.0-30.0); Creatinine Clearance Estimated 29 mL/min (50-200); Estimated Glomerular Filt Rate 47 ml/min (>60); GFR (African American) 57 ML/MIN (>60); Glucose 107 mg/dl (74-100)
[2023-12-02 08:00] VITALS: BP 111/56; PULSE 100; PULSE 102; PULSE 104; RESP 14; RESP 18; TEMP 36.7; O2SAT 98
[2023-12-02] MEDS: APIXABAN 5MG TABLET 2.5 MG PO (08:05)
[2023-12-02] MEDS: SACUBITRIL/VALSARTAN 24-26MG TABLET 1 EACH PO (08:05)
[2023-12-02] MEDS: NYSTATIN TOPICAL POWDER 30GM TP ×2 (08:06→20:28)
[2023-12-02] MEDS: METOPROLOL TARTRATE 25MG TABLET 25 MG PO (08:06)
[2023-12-02] MEDS: POLYETHYLENE GLYCOL 3350 17 GM PACKET PO (08:06)
[2023-12-02] MEDS: SENNOSIDES 8.6MG/DOCUSATE 50MG TABLET 1 TAB PO ×2 (08:06→20:28)
[2023-12-02] MEDS: FUROSEMIDE 40MG/4ML VIAL 40 MG IV (08:06)
--- NOTE | 2023-12-02 08:28 | P.PN_ITS ---
Subjective *Date: 12/02/23 *Time: 08:28 Medical Exam Vital signs and Labs for Last 24 Hours: Vital Signs Temp Pulse Pulse Resp BP Pulse Ox O2 Del Method 12/02/23 06:53 Nasal Cannula 12/02/23 05:00 Nasal Cannula 12/02/23 04:00 97.8 F 100 H 16 96/52 L 100 Nasal Cannula 12/02/23 04:00 100 H 12/02/23 03:00 Nasal Cannula 12/02/23 01:00 Nasal Cannula 12/02/23 00:00 97.4 F L 102 H 18 99/54 L 97 Nasal Cannula 12/02/23 00:00 92 H 12/01/23 23:46 Nasal Cannula 12/01/23 23:00 Nasal Cannula 12/01/23 21:00 Nasal Cannula 12/01/23 20:00 87 12/01/23 20:00 97.6 F 100 H 18 93/52 L 94 L Room Air 12/01/23 20:00 Nasal Cannula 12/01/23 18:05 89 L Room Air 12/01/23 17:00 Nasal Cannula 12/01/23 15:46 98.3 F 103 H 22 128/54 L 94 L Nasal Cannula 12/01/23 13:42 Nasal Cannula 12/01/23 12:09 Nasal Cannula 12/01/23 12:00 100 H 12/01/23 12:00 98.0 F 108 H 24 116/49 L 94 L Nasal Cannula 12/01/23 10:16 Nasal Cannula 12/01/23 09:00 Nasal Cannula O2 Flow Rate 12/02/23 06:53 2 12/02/23 05:00 3 12/02/23 04:00 2 12/02/23 04:00 12/02/23 03:00 3 12/02/23 01:00 3 12/02/23 00:00 3 12/02/23 00:00 12/01/23 23:46 3 12/01/23 23:00 3 12/01/23 21:00 3 12/01/23 20:00 12/01/23 20:00 12/01/23 20:00 3 12/01/23 18:05 12/01/23 17:00 3 12/01/23 15:46 3 12/01/23 13:42 3 12/01/23 12:09 3 12/01/23 12:00 12/01/23 12:00 3 12/01/23 10:16 3 12/01/23 09:00 3 Intake and Output 12/01/23 12/02/23 12/02/23 23:59 07:59 15:59 Output Total 0 / 0 Balance 0 / 0 Output: Output, Urine Amount 0 / 0 Other: Number of Unmeasured Voids 1 Weight 52.305 kg Patient Weight 12/02/23 23:59 Weight 52.305 kg Laboratory Results - last 24 hr 12/01/23 06:23: Total Counted 100, Neutrophils % (Manual) 84 H, Lymphocytes % (Manual) 12, Monocytes % (Manual) 4, Platelet Estimate Normal, RBC Morphology Normal 12/02/23 06:06: WBC 8.3, RBC 4.26, Hgb 11.7 L, Hct 40.1, MCV 94.2, MCH 27.4, MCHC 29.1 L, RDW 15.9, Plt Count 178, MPV 9.2, Neut % (Auto) 82.6 H, Lymph % (Auto) 9.2 L, [place] % (Auto) 7.9, Eos % (Auto) 0.1, Baso % (Auto) 0.2, Neut # (Auto) 6.9, Lymph # (Auto) 0.8, [place] # (Auto) 0.7, Eos # (Auto) 0.0, Baso # (Auto) 0.0, Sodium 136, Potassium 4.3, Chloride 100, Carbon Dioxide 32 H, Anion Gap 8.3, BUN 36 H D, Creatinine 1.10 H D, Estimated Creat Clear 29, Estimated GFR 47 L, Est GFR ( Amer) 57 L D, Glucose 107 H, Calcium 7.9 L I & O for Labs for Last 24 Hours: Intake & Output 11/29/23 11/30/23 12/01/23 12/02/23 23:59 23:59 23:59 23:59 Intake Total 390 / 590 440 / 680 1130 / 1130 Output Total 0 / 0 550 / 550 150 / 150 0 / 0 Balance 390 / 590 -110 / 130 980 / 980 0 / 0 Weight 54.114 kg 55.026 kg 73.573 kg 52.305 kg The patient's infection will respond to the chosen ABx?: Yes Is the patient receiving the right drug, dose, and route?: Yes Could a more targeted ABx be ordered?: No (WBC WNL, AFEBRILE. CONTINUING ABX.)
[2023-12-02] MEDS: MORPHINE 4MG/ML SYRINGE 4 MG IV ×2 (09:03→18:43)
[2023-12-02] MEDS: ONDANSETRON 4MG/2ML VIAL 4 MG IV ×2 (09:07→18:44)
--- NOTE | 2023-12-02 09:08 | PC.NURSE ---
Pt. complaining of extreme pain in her lower abdomen rating 10/10. She states she needs to void but is unable to. Morphine 4 mg and Zofran 4 mg per MAR. Bladder scam reveals 326 ml. Unable to reach MD at this time.
--- NOTE | 2023-12-02 09:10 | PC.NURSE ---
Family and hospice nurse at bedside.
[2023-12-02 12:00] VITALS: PULSE 90
--- NOTE | 2023-12-02 14:51 | PC.NURSE ---
Current Medications SUHA VAIL 1935 Acetaminophen (Acetaminophen 325mg Tab) 650 mg PO Q4HP PRN PRN Reason: Fever or Mild Pain (1-3) Stop: 12/29/23 06:42 Last Admin: 12/01/23 04:25 Dose: 650 mg Albuterol/Ipratropium (Ipratropium/Albuterol 3 Ml Neb) 3 ml IH Q6HP PRN PRN Reason: Shortness Of Breath Stop: 12/29/23 06:46 Bisacodyl (Bisacodyl 5mg Tablet) 5 mg PO DAILYP PRN PRN Reason: Constipation Stop: 12/30/23 07:19 Gabapentin (Gabapentin 100mg Capsule) 200 mg PO HS [facility] Stop: 12/29/23 20:59 Last Admin: 12/01/23 21:13 Dose: 200 mg Levothyroxine Sodium (Levothyroxine 25mcg (0.025mg) Tab) 25 mcg PO DAILYDM [facility] Stop: 12/30/23 08:59 Last Admin: 12/02/23 06:40 Dose: 25 mcg Lorazepam (Lorazepam 2mg/Ml Vial) 0.5 mg IV Q4HP PRN PRN Reason: Agitation Stop: 12/31/23 16:50 Metoprolol Tartrate (Metoprolol Tartrate 25mg Tablet) 25 mg PO BID [facility] Stop: 12/31/23 10:29 Last Admin: 12/02/23 08:06 Dose: 25 mg Mirtazapine (Mirtazapine 15 Mg Tablet) 7.5 mg PO HS [facility] Stop: 12/30/23 20:59 Last Admin: 12/01/23 21:13 Dose: 7.5 mg Morphine Sulfate (Morphine 4mg/Ml Syringe) 4 mg IV Q4HP PRN PRN Reason: Moderate to Severe Pain (4-10) Stop: 12/31/23 16:50 Last Admin: 12/02/23 09:03 Dose: 4 mg Nystatin (Nystatin Topical Powder 30gm) 0 gm TP TID [facility] Stop: 12/30/23 12:59 Last Admin: 12/02/23 08:06 Dose: 30 gm Ondansetron HCl (Ondansetron 4mg/2ml Vial) 4 mg IV Q8HP PRN PRN Reason: Nausea Stop: 12/29/23 06:42 Last Admin: 12/02/23 09:07 Dose: 4 mg Sacubitril/Valsartan (Sacubitril/Valsartan 24-26mg Tablet) 1 each PO BID JOSE Stop: 12/30/23 20:59 Last Admin: 12/02/23 08:05 Dose: 1 each Senna/Docusate Sodium (Sennosides 8.6mg/Docusate 50mg Tablet) 1 tab PO BID JOSE Stop: 12/29/23 20:59 Last Admin: 12/02/23 08:06 Dose: 1 tab Simethicone (Simethicone 80mg Chewable Tablet) 80 mg PO QIDP PRN PRN Reason: Gas Pain and Discomfort Stop: 12/29/23 19:31 Sodium Chloride (Sodium Chloride 0.9% 10ml Flush Syringe) 10 ml IV NEEDED PRN PRN Reason: Maintain IV Site Stop: 12/30/23 07:19 Sodium Chloride (Sodium Chloride 0.9% 10ml Vial) 10 ml IV NEEDED PRN PRN Reason: to Dilute Lorazepam inj Stop: 12/31/23 16:50 Trazodone HCl (Trazodone 50mg Tablet) 50 mg PO HSP PRN PRN Reason: Sleep Stop: 12/29/23 19:31
--- NOTE | 2023-12-02 14:52 | EXP.ACUTE.PN ---
Subjective *Date: 12/02/23 *Time: 15:20 Interval history: Some response on exam. Alert this morning but not oriented to place or time. Family at bedside. Continues to require 2 L oxygen. Afebrile overnight. Remains tachycardic. Poor p.o. intake. Urine output decreasing. Worsening kidney function today Medical Exam Vital signs and Labs for Last 24 Hours: Vital Signs Temp Pulse Pulse Resp BP Pulse Ox O2 Del Method 12/02/23 13:00 Nasal Cannula 12/02/23 11:00 Nasal Cannula 12/02/23 09:00 Nasal Cannula 12/02/23 08:00 104 H 14 98 Nasal Cannula 12/02/23 08:00 98.1 F 102 H 18 111/56 L 98 12/02/23 08:00 100 H 12/02/23 06:53 Nasal Cannula 12/02/23 05:00 Nasal Cannula 12/02/23 04:00 97.8 F 100 H 16 96/52 L 100 Nasal Cannula 12/02/23 04:00 100 H 12/02/23 03:00 Nasal Cannula 12/02/23 01:00 Nasal Cannula 12/02/23 00:00 97.4 F L 102 H 18 99/54 L 97 Nasal Cannula 12/02/23 00:00 92 H 12/01/23 23:46 Nasal Cannula 12/01/23 23:00 Nasal Cannula 12/01/23 21:00 Nasal Cannula 12/01/23 20:00 87 12/01/23 20:00 97.6 F 100 H 18 93/52 L 94 L Room Air 12/01/23 20:00 Nasal Cannula 12/01/23 18:05 89 L Room Air 12/01/23 17:00 Nasal Cannula 12/01/23 15:46 98.3 F 103 H 22 128/54 L 94 L Nasal Cannula O2 Flow Rate 12/02/23 13:00 2 12/02/23 11:00 2 12/02/23 09:00 2 12/02/23 08:00 2 12/02/23 08:00 12/02/23 08:00 12/02/23 06:53 2 12/02/23 05:00 3 12/02/23 04:00 2 12/02/23 04:00 12/02/23 03:00 3 12/02/23 01:00 3 12/02/23 00:00 3 12/02/23 00:00 12/01/23 23:46 3 12/01/23 23:00 3 12/01/23 21:00 3 12/01/23 20:00 12/01/23 20:00 12/01/23 20:00 3 12/01/23 18:05 12/01/23 17:00 3 12/01/23 15:46 3 Intake and Output 12/01/23 12/02/23 12/02/23 23:59 07:59 15:59 Output Total 0 / 0 Balance 0 / 0 Output: Output, Urine Amount 0 / 0 Other: Number of Unmeasured Voids 1 Weight 52.305 kg Patient Weight 12/02/23 23:59 Weight 52.305 kg Laboratory Results - last 24 hr 12/02/23 06:06: WBC 8.3, RBC 4.26, Hgb 11.7 L, Hct 40.1, MCV 94.2, MCH 27.4, MCHC 29.1 L, RDW 15.9, Plt Count 178, MPV 9.2, Neut % (Auto) 82.6 H, Lymph % (Auto) 9.2 L, [place] % (Auto) 7.9, Eos % (Auto) 0.1, Baso % (Auto) 0.2, Neut # (Auto) 6.9, Lymph # (Auto) 0.8, [place] # (Auto) 0.7, Eos # (Auto) 0.0, Baso # (Auto) 0.0, Sodium 136, Potassium 4.3, Chloride 100, Carbon Dioxide 32 H, Anion Gap 8.3, BUN 36 H D, Creatinine 1.10 H D, Estimated Creat Clear 29, Estimated GFR 47 L, Est GFR ( Amer) 57 L D, Glucose 107 H, Calcium 7.9 L I & O for Labs for Last 24 Hours: Intake & Output 11/29/23 11/30/23 12/01/23 12/02/23 23:59 23:59 23:59 23:59 Intake Total 390 / 590 440 / 680 1130 / 1130 Output Total 0 / 0 550 / 550 150 / 150 0 / 0 Balance 390 / 590 -110 / 130 980 / 980 0 / 0 Weight 54.114 kg 55.026 kg 73.573 kg 52.305 kg Microbiology Reports for the Last 24 Hours: Microbiology 11/29/23 09:39 Urine,Clean Catch Urine Culture - Final No growth. Constitutional: Present mild distress, average body habitus, chronically ill appearing and somnolent Head: Present atraumatic and normocephalic ENT: Present normal exam Respiratory: Present rhonchi and normal respiratory effort; Absent wheezes or crackles Cardiac: Present Reg Rate and Rhythm GI: Present soft and normal bowel sounds; Absent distention or tenderness Extremities: Present normal inspection, full ROM and edema (1+ BLE) Skin: Present intact; Absent erythema Neuro: Present Grossly Intact, alert and moves all extremities Assessment and Plan *Assessment and plan (1) Acute respiratory failure with hypoxia: Status: Acute Category: Medical Code(s): J96.01 - Acute respiratory failure with hypoxia (2) Transition from acute care to hospice: Status: Acute Category: Medical Code(s): Z78.9 - Other specified health status (3) Pericardial effusion: Status: Acute Category: Medical Code(s): I31.39 - Other pericardial effusion (noninflammatory) (4) Pleural effusion, right: Status: Acute Category: Medical Code(s): J90 - Pleural effusion, not elsewhere classified (5) UTI (urinary tract infection): Status: Acute Qualifiers: Hematuria presence: without hematuria Urinary tract infection type: site unspecified Qualified Code(s): N39.0 - Urinary tract infection, site not specified Category: Medical Code(s): N39.0 - Urinary tract infection, site not specified (6) Heart failure, unspecified: Status: Acute Qualifiers: Heart failure chronicity: unspecified Category: Medical Code(s): I50.9 - Heart failure, unspecified (7) Unspecified atrial fibrillation: Status: Acute Qualifiers: Atrial fibrillation type: unspecified Qualified Code(s): I48.91 - Unspecified atrial fibrillation Category: Medical Code(s): I48.91 - Unspecified atrial fibrillation (8) 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 On arrival to another facility initial workup was included CT and chest x-ray concerning for right pleural effusion, along with pericardial effusion. EKG was in atrial fibrillation with T inversions in V2 through V6 no ST changes. Troponin was negative BNP slightly elevated. UA concerning for UTI. Transferred for further management. After extensive goals of care discussion with family, decision made to transition to hospice care today. Patient has been declining for some time, family wants to focus on keeping patient comfortable and not be aggressive about interventions. Hospice consulted, admitted to their services today. Problems addressed as follows: Acute respiratory failure with hypoxia: - Moderate pericardial effusion - B/l pleural effusion Urinary tract infection: Completed Levaquin course today. Heart failure with reduced ejection fraction: - Echo performed - LVEF 30%, no sign of tamponade, pericardial effusion -Largest pocket measures 1.2 cm in diastole and is located posteriorly. - CT chest does show pleural effusions b/l - R > L, small to moderate in size. In line with goals of care, will not pursue aggressive interventions. Patient stable on 2 to 3 L oxygen at this time. -Discontinue diuretics and heart failure medications. Dementia: Complicates her care. Discontinuing memantine in line with goals of care Continue Synthroid for hypothyroid. Admitted to hospice services today, - Initiate morphine 4 mg as needed every 4 hours for pain. - Ativan 0.5 mg as needed every 4hrs prn for agitation. - Continue sleep aids including mirtazapine and trazodone - Allow for comfort feeds. Patient's condition declining. PPS of 10-20 Discontinue Eliquis DNR/DNI
[2023-12-02 15:35] VITALS: BMI 17.7
[2023-12-02 16:00] VITALS: PULSE 80
[2023-12-02 20:00] VITALS: BP 104/56; PULSE 103; PULSE 97; RESP 12; TEMP 36.8; O2SAT 96
[2023-12-02] MEDS: GABAPENTIN 100MG CAPSULE 200 MG PO (20:28)
[2023-12-02] MEDS: MIRTAZAPINE 15 MG TABLET 7.5 MG PO (20:28)
[2023-12-03 04:00] VITALS: BMI 18.1
[2023-12-03] MEDS: LEVOTHYROXINE 25MCG (0.025MG) TAB 25 MCG PO (05:58)
[2023-12-03] MEDS: MORPHINE 4MG/ML SYRINGE 4 MG IV ×2 (05:58→12:23)
--- NOTE | 2023-12-03 06:35 | PC.NURSE ---
very lethargic due to pain meds. 02 at 4lnc. 02 sats 96%. HOB up 35 degrees. Resting quietly at this time.
[2023-12-03 07:45] VITALS: BP 107/48; PULSE 75; RESP 14; TEMP 37.1; O2SAT 95
[2023-12-03] MEDS: NYSTATIN TOPICAL POWDER 30GM TP (09:11)
[2023-12-03] MEDS: SODIUM CHLORIDE 0.9% 10ML FLUSH SYRINGE 10 ML IV (12:24)
[2023-12-03] MEDS: ONDANSETRON 4MG/2ML VIAL 4 MG IV (12:25)
--- NOTE | 2023-12-03 12:41 | P.DS_ITS ---
General Admission date:: 11/29/23 Discharge date: 12/03/23 HPI HPI HPI: This is an 88-year-old female [facility] resident with PMHx of atrial fibrillation s/p cardioversion x3, arthritis, systolic heart failure, unknown EF, respiratory failure not on oxygen, sent to ED by nursing facility staff for evaluation of hypoxia. Patient reportedly had an episode of shortness of breath and cough, saturation dropped in the mid 70s and they had placed on oxygen. Patient reports started has not need to be on oxygen for approximately 1 year that she did have a recent hip replacement surgery within the past year and that has helped. On arrival patient was found to have a right pleural effusion with cardiac pericardial effusion. Transfer was requested for pulmonology and cardiology evaluation. Patient denies any chest pain or palpitations no headache currently on 4 L nasal cannula. On arrival no respiratory distress seen. Admitted for further workup and management. Hospital Course Hospital Course Hospital Course: 88-year-old female [facility] resident with PMHx of atrial fibrillation s/p cardioversion x3, arthritis, systolic heart failure, unknown EF, respiratory failure not on oxygen, sent to ED by nursing facility staff for evaluation of hypoxia. On arrival to another facility initial workup was included CT and chest x-ray concerning for right pleural effusion, along with pericardial effusion. EKG was in atrial fibrillation with T inversions in V2 through V6 no ST changes. Troponin was negative BNP slightly elevated. UA concerning for UTI. Transferred for further management. After extensive goals of care discussion with family, decision made to transition to hospice care 11/30 for heart failure, progressive decline, dementia, weight loss, failure to thrive. Patient has been declining for some time, family wants to focus on keeping patient comfortable and not be aggressive about interventions. Admitted to hospice. On evaluation today, deemed appropriate to transition back to [facility] for continued hospice care. Problems addressed as follows: Acute respiratory failure with hypoxia: - Moderate pericardial effusion - B/l pleural effusion - Continue supplemental oxygen, currently on 4 L nasal cannula. Oxygen for comfort. Urinary tract infection: Completed Levaquin course today. Heart failure with reduced ejection fraction: - Echo performed - LVEF 30%, no sign of tamponade, pericardial effusion - Largest pocket measures 1.2 cm in diastole and is located posteriorly. CT chest does show pleural effusions b/l - R > L, small to moderate in size. In line with goals of care, will not pursue aggressive interventions. Patient stable on 4L oxygen at this time. Discontinue diuretics and heart failure medications. Dementia: Complicates her care. Discontinuing memantine in line with goals of care Continue Synthroid for hypothyroid. Admitted to hospice services. Patient evaluated, deemed appropriate to return back to [facility] for continued hospice care. Meds as follows: - Initiate morphine 4 mg as needed every 4 hours for pain. - Ativan 0.5 mg as needed every 4hrs prn for agitation. - Continue sleep aids including mirtazapine and trazodone - Allow for comfort feeds. Patient's condition declining. PPS of 10-20 Patient has been CODE STATUS of DNR/DNI during admission. Exam Data for Last 24 hours Vital signs and Labs for Last 24 Hours: Temp Pulse Resp BP Pulse Ox O2 Del Method O2 Flow Rate 98.7 F 75 14 107/48 L 95 Nasal Cannula 4 12/03/23 07:45 12/03/23 07:45 12/03/23 07:45 12/03/23 07:45 12/03/23 07:45 12/03/23 11:00 12/03/23 11:00 I & O for Last 24 hours: Intake & Output 11/30/23 12/01/23 12/02/23 12/03/23 23:59 23:59 23:59 23:59 Intake Total 440 / 680 1130 / 1130 240 / 240 0 / 0 Output Total 550 / 550 150 / 150 500 / 500 300 / 300 Balance -110 / 130 980 / 980 -260 / -260 -300 / -300 Weight 55.026 kg 73.573 kg 52 kg 53 kg Microbiology Reports for the Last 24 Hours: Microbiology 11/29/23 09:39 Urine,Clean Catch Urine Culture - Final No growth. Constitutional Constitutional: mild distress, thin, chronically ill appearing and somnolent *Routine HEENT Exam Head: Present normocephalic Eye: Present EOMI and PERRL ENT: Present mucous membranes moist Comments: Loss of periorbital and bitemporal fat. *Routine Neck Exam Neck: Present supple; Absent lymphadenopathy *Routine Respiratory Exam Respiratory: Present prolonged expiratory phase, rhonchi and crackles; Absent wh eezes *Routine Cardiovascular Exam Cardiovascular: Present tachycardia and irregularly irregular *Routine Abdominal Exam Abdominal: Present soft and normoactive bowel sounds; Absent tenderness *Routine Rectal Exam Patient deferred: visual exam *Routine Exam Patient deferred: external exam *Routine Extremities Exam Extremities: Absent cyanosis, clubbing or edema *Routine Skin Exam Skin: Present intact and warm; Absent cyanosis or rash *Routine Neurological Exam Neurological: Present alert, altered mental status and moving all extremities Comments: Global weak, not following commands DS: Diagnosis Discharge Diagnosis (1) Acute respiratory failure with hypoxia: Status: Acute Code(s): J96.01 - Acute respiratory failure with hypoxia (2) Transition from acute care to hospice: Status: Acute Code(s): Z78.9 - Other specified health status (3) Pericardial effusion: Status: Acute Code(s): I31.39 - Other pericardial effusion (noninflammatory) (4) Pleural effusion, right: Status: Acute Code(s): J90 - Pleural effusion, not elsewhere classified (5) UTI (urinary tract infection): Status: Acute Code(s): N39.0 - Urinary tract infection, site not specified Qualifiers: Hematuria presence: without hematuria Urinary tract infection type: site unspecified Qualified Code(s): N39.0 - Urinary tract infection, site not specified (6) Heart failure, unspecified: Status: Acute Code(s): I50.9 - Heart failure, unspecified Qualifiers: Heart failure chronicity: unspecified (7) Unspecified atrial fibrillation: Status: Acute Code(s): I48.91 - Unspecified atrial fibrillation Qualifiers: Atrial fibrillation type: unspecified Qualified Code(s): I48.91 - Unspecified atrial fibrillation (8) 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: Status: Acute Code(s): F06.70 - 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 Meds Home Medications and Allergies Home Medications ?Medication ?Instructions ?Recorded ?Confirmed ?Type acetaminophen 500 mg tablet 500 mg PO TIDP PRN Mild Pain 11/29/23 11/29/23 History (Scale Score 1-4) bisacodyl 5 mg tablet 5 mg PO DAILYP PRN Constipation 11/29/23 11/29/23 History gabapentin 100 mg capsule 200 mg PO HS 11/29/23 11/29/23 History levothyroxine 25 mcg tablet 25 mcg PO DAILYDM 11/29/23 11/29/23 History mirtazapine 7.5 mg tablet 7.5 mg PO HS 11/29/23 11/29/23 History simethicone 80 mg chewable tablet 80 mg PO ACHS PRN GAS 11/29/23 11/29/23 History ipratropium 0.5 mg-albuterol 3 mg 3 ml inhalation Q6HP PRN Shortness 12/03/23 Rx (2.5 mg base)/3 mL nebulization Of Breath #0 mL soln lorazepam 1 mg tablet 0.5 mg (1/2 x 1 mg) PO Q4HP PRN 12/03/23 Rx Anxiety 10 days #20 tabs morphine concentrate 100 mg/5 mL 5 mg (0.25 mL) PO Q4H PRN severe 12/03/23 Rx (20 mg/mL) oral solution pain (scale score 7-10) #30 mL New Prescriptions to Start Prescriptions: Malcolm Clayton morphine concentrate Malcolm Fatima Allergies Allergy/AdvReac Type Severity Reaction Status Date / Time codeine Allergy Severe Anaphylaxis Verified 11/29/23 06:37 Penicillins Allergy Unknown Unknown Verified 11/29/23 06:37 allergy reaction Sulfa (Sulfonamide Allergy Unknown Unknown Verified 11/29/23 06:37 Antibiotics) allergy reaction Discharge Plan Disposition Patient Disposition: Hospice - Medical Facility Condition: Serious Discharge Order Discharge Orders: Discharge Order (Routine); Ordered 12/03/23 Ordered By: Malcolm Fatima Follow up Plan Prescriptions/Medication Reconciliation: New ipratropium-albuterol 0.5 mg-3 mg(2.5 mg base)/3 mL Solution For Nebulization 3 ml inhalation Q6HP PRN (Reason: Shortness Of Breath) Qty: 0 0RF morphine concentrate 100 mg/5 mL (20 mg/mL) solution 5 mg PO Q4H PRN (Reason: severe pain (scale score 7-10)) Qty: 30 0RF Continued acetaminophen 500 mg Tablet 500 mg PO TIDP PRN (Reason: Mild Pain (Scale Score 1-4)) levothyroxine 25 mcg tablet 25 mcg PO DAILYDM gabapentin 100 mg capsule 200 mg PO HS bisacodyl 5 mg Tablet 5 mg PO DAILYP PRN (Reason: Constipation) simethicone 80 mg Tablet,Chewable 80 mg PO ACHS PRN (Reason: GAS) mirtazapine 7.5 mg tablet 7.5 mg PO HS Changed lorazepam 1 mg Tablet 0.5 mg PO Q4HP PRN (Reason: Anxiety) 10 Days Qty: 20 0RF Discontinued spironolactone 25 mg tablet 25 mg PO SUTUTHSA furosemide 20 mg tablet 20 mg PO MOWEFR polyethylene glycol 3350 [Miralax] 17 gram/dose Powder 17 g PO DAILY apixaban 2.5 mg Tablet 2.5 mg PO BID memantine 5 mg tablet 5 mg PO HS trazodone 50 mg Tablet 50 mg PO HSP PRN (Reason: Sleep) sennosides-docusate sodium [Senna-S] 8.6-50 mg Tablet 1 tab PO BID tramadol 50 mg Tablet 50 mg PO Q6HP PRN (Reason: Moderate TO SEVERE Pain (PAIN 4-10)) PreserVision AREDS-2 250-90-40-1 mg Capsule 1 tab PO BID Problem Reconciliation Problems Reviewed?: Yes Patient Discharge Instructions ACTIVITY: Continue current activity DIET: continue same diet Patient Instructions: DI for Pleural Effusion Print Language: Nigerian Providers Primary Care Provider: Guillermo Dotson Provider: Rosetta Cole Attending Provider: Rosetta Cole
--- NOTE | 2023-12-03 14:04 | PC.NURSE ---
Rose Mary Greenwood, 1935 Current Medications Albuterol/Ipratropium (Ipratropium/Albuterol 3 Ml Neb) 3 ml IH Q6HP PRN PRN Reason: Shortness Of Breath Stop: 12/29/23 06:46 Bisacodyl (Bisacodyl 5mg Tablet) 5 mg PO DAILYP PRN PRN Reason: Constipation Stop: 12/30/23 07:19 Gabapentin (Gabapentin 100mg Capsule) 200 mg PO HS [facility] Stop: 12/29/23 20:59 Last Admin: 12/02/23 20:28 Dose: 200 mg Levothyroxine Sodium (Levothyroxine 25mcg (0.025mg) Tab) 25 mcg PO DAILYDM [facility] Stop: 12/30/23 08:59 Last Admin: 12/03/23 06:30 Dose: Not Given Lorazepam (Lorazepam 2mg/Ml Vial) 0.5 mg IV Q4HP PRN PRN Reason: Agitation Stop: 12/31/23 16:50 Mirtazapine (Mirtazapine 15 Mg Tablet) 7.[address] [facility] Stop: 12/30/23 20:59 Last Admin: 12/02/23 20:28 Dose: 7.5 mg Morphine Sulfate (Morphine 4mg/Ml Syringe) 4 mg IV Q4HP PRN PRN Reason: Moderate to Severe Pain (4-10) Stop: 12/31/23 16:50 Last Admin: 12/03/23 12:23 Dose: 4 mg Nystatin (Nystatin Topical Powder 30gm) 0 gm TP TID [facility] Stop: 12/30/23 12:59 Last Admin: 12/03/23 09:11 Dose: 30 gm Ondansetron HCl (Ondansetron 4mg/2ml Vial) 4 mg IV Q8HP PRN PRN Reason: Nausea Stop: 12/29/23 06:42 Last Admin: 12/03/23 12:25 Dose: 4 mg Senna/Docusate Sodium (Sennosides 8.6mg/Docusate 50mg Tablet) 1 tab PO BID [facility] Stop: 12/29/23 20:59 Last Admin: 12/03/23 09:07 Dose: Not Given Simethicone (Simethicone 80mg Chewable Tablet) 80 mg PO QIDP PRN PRN Reason: Gas Pain and Discomfort Stop: 12/29/23 19:31 Sodium Chloride (Sodium Chloride 0.9% 10ml Flush Syringe) 10 ml IV NEEDED PRN PRN Reason: Maintain IV Site Stop: 12/30/23 07:19 Last Admin: 12/03/23 12:24 Dose: 10 ml Sodium Chloride (Sodium Chloride 0.9% 10ml Vial) 10 ml IV NEEDED PRN PRN Reason: to Dilute Lorazepam inj Stop: 12/31/23 16:50 Trazodone HCl (Trazodone 50mg Tablet) 50 mg PO HSP PRN PRN Reason: Sleep Stop: 12/29/23 19:31
== END 2023-12-03 15:20 | disposition hospice, inpatient (51) | DRG 189 ==
PROVIDERS: Nurse Practitioner Family; Admitting Provider Internal Medicine; PCP Family Medicine; Visit Provider Internal Medicine
DX: J96.01 Acute respiratory failure with hypoxia (principal); I50.20 Unspecified systolic (congestive) heart failure; N39.0 Urinary tract infection, site not specified; I31.39 Other pericardial effusion (noninflammatory); I48.91 Unspecified atrial fibrillation; F06.70 Mild neurocognitive disorder due to known physiological condition without behavioral disturbance; F03.90 Unspecified dementia, unspecified severity, without behavioral disturbance, psychotic disturbance, mood disturbance, and anxiety
CPT/HCPCS: 36415; 71045; 71250; 80048; 80053; 81001; 83735; 84484; 85007; 85025; 85027; 85610; 87086; 93005; 93306; 94761; J1940; J1956; J2060; J2270; J2405